=== PATIENT | male | born 1955 | race Caucasian/White ===

== ENCOUNTER 2018-12-28 14:33 | Inpatient (IN) | payer MEDICARE, BC ==
[~2018-12-28] VITALS: Ht 193 cm; Wt 98.2 kg
[2019-01-03 13:30] VITALS: BP 144/92
== END 2019-01-03 14:57 | DRG 91 ==
LOC: ED 18:00 → EDIP 20:45 → 4EST 21:13
PROVIDERS: ADMIT Family Medicine; ATTEND Internal Medicine
DX: G08 Intracranial and intraspinal phlebitis and thrombophlebitis (principal); N17.0 Acute kidney failure with tubular necrosis; N39.0 Urinary tract infection, site not specified; B95.1 Streptococcus, group B, as the cause of diseases classified elsewhere; E11.65 Type 2 diabetes mellitus with hyperglycemia; E78.5 Hyperlipidemia, unspecified; E83.39 Other disorders of phosphorus metabolism; E83.42 Hypomagnesemia; E86.0 Dehydration; H53.2 Diplopia; I10 Essential (primary) hypertension; M10.9 Gout, unspecified; R00.1 Bradycardia, unspecified; R91.1 Solitary pulmonary nodule; N35.919 Unspecified urethral stricture, male, unspecified site; M19.90 Unspecified osteoarthritis, unspecified site; Z80.1 Family history of malignant neoplasm of trachea, bronchus and lung; Z87.442 Personal history of urinary calculi; Z90.5 Acquired absence of kidney; Z91.14 Patient's other noncompliance with medication regimen
CPT/HCPCS: 36415; 70450; 70544; 70551; 71045; 71250; 80048; 80053; 80061; 81001; 81240; 82140; 82962; 83036; 83735; 83880; 84100; 84443; 84484; 85025; 85300; 85303; 85306; 85520; 85613; 85651; 85670; 85705; 85732; 86140; 86147; 87040; 87077; 87086; 87147; 93005; 96361; 96365; G0378; J0696; J1644; J1815; J3475; J7030; J7040; J7120

== ENCOUNTER 2019-04-11 14:33 | Outpatient (CLI) | payer MEDICARE, BC ==
[~2019-04-11 14:33] MED LIST: ACET325T26 PO; ALLO300T PO; ALOG1TAB6 PO; AMLO1CAP3 PO; AMLO2.5T5 PO; APIX5TAB PO; CEFD300C37 PO; DULO60CA7 PO; GABA300C10 PO; INSU100V8 SQ; LEVE500T8 PO; ONDA4TAB13 SL; OXYC-302 PO; ROSU20TA2 PO
[2019-04-11] MEDS ORDERED: GADOTERATE 10 MMOL/20 ML VIAL ONE (17:09)
== END 2019-04-11 23:59 | disposition home or self-care (01) ==
LOC: RAD 14:33
PROVIDERS: ATTEND Registered Nurse
DX: G08 Intracranial and intraspinal phlebitis and thrombophlebitis (principal); L98.8 Other specified disorders of the skin and subcutaneous tissue
CPT/HCPCS: 70546; A9575

== ENCOUNTER → 2019-12-17 | Outpatient (CLI) | payer MEDICARE, BC ==
[~2019-12-17] MED LIST changes: +OMNIPAQUE 350 MG/ML, 100ML BOTTLE ONE
== END | disposition home or self-care (01) ==
LOC: CFH 14:14
PROVIDERS: ATTEND Internal Medicine
DX: J18.9 Pneumonia, unspecified organism (principal)
CPT/HCPCS: 71250; Q9967

== ENCOUNTER → 2020-10-28 | Outpatient (CLI) | payer MEDICARE, BC ==
[~2020-10-28] MED LIST changes: +ALOG1TAB PO; +CEPH500T PO; +LISI-170 PO; -OMNIPAQUE 350 MG/ML, 100ML BOTTLE ONE; -OXYC-302 PO; +OXYC1TAB14 PO
[2020-10-28 16:21] LABS: MEAN CORPUSCULAR HEMOGLOBIN 30.5 pg (27.5-34.5); MEAN CORPUSCULAR HGB CONC 33.1 g/dL (33.2-36.2); PLATELET COUNT 199 x10^3/uL (130-400); RED BLOOD COUNT 4.03 x10^6/uL (4.38-5.82)
[2020-10-28 16:31] LABS: ANION GAP 7 mmol/L (5-15); CALCIUM 9.8 mg/dL (8.5-10.1); CHLORIDE 107 mmol/L (98-107); CREATININE 1.77 mg/dL (0.7-1.3)
== END | disposition home or self-care (01) ==
LOC: LAB 15:57
PROVIDERS: ATTEND Family Medicine
DX: R50.9 Fever, unspecified (principal)
CPT/HCPCS: 36415; 80048; 85027